=== PATIENT | female | born 1965 | race African-American/Black ===

== ENCOUNTER 2018-01-04 10:06 | Inpatient (IN) | payer OTHER ==
[2017-12-28 10:17] VITALS: BMI 34.4
[2018-01-04] MEDS ORDERED: TRANEXAMIC ACID 1000 MG/10 ML VIAL IVPUSH ONE (12:15)
[2018-01-04] MEDS ORDERED: CEFAZOLIN 2 GM/D5W 2 GM/50 ML ML IVPB ONE (12:15)
[2018-01-04] MEDS ORDERED: VANCOMYCIN 1 GRAM (PRE-DOCKED) 1,000 MG/250 ML BAG IVPB ONE (12:15)
--- NOTE | 2018-01-04 12:17 | HP ---
History & Physical Update - History History: No Change - Physical Physical: No Change - Assessment Assessment: No Change - Plan Plan: No Change (full h&P in chart from 12/06/2017 PMD)
[2018-01-04] MEDS ORDERED: BUPIVACAINE LIPOSOME/PF (EXPAREL) 266 MG/20 ML VIAL ONE (13:37)
[2018-01-04] MEDS ORDERED: MIDAZOLAM HCL 2 MG/2 ML SINGLE DOSE VIAL ONE ×4 (13:52→15:34)
[2018-01-04] MEDS ORDERED: SODIUM CHLORIDE 0.9% P/F 10 ML VIAL IJ ONE ×2 (13:55→14:01)
[2018-01-04] MEDS ORDERED: PROPOFOL 20 ML ONE ×9 (14:00→15:47)
[2018-01-04] MEDS ORDERED: LIDOCAINE HCL/PF 2% SDV 5ML VIAL ONE (14:00)
[2018-01-04] MEDS ORDERED: TRANEXAMIC ACID 1000 MG/10 ML VIAL ONE ×3 (14:01→16:46)
[2018-01-04] MEDS ORDERED: ONDANSETRON 4 MG/2 ML VIAL ONE ×2 (14:01→18:59)
[2018-01-04] MEDS ORDERED: DEXAMETHASONE SOD PHOSPHATE 4 MG/1 ML VIAL ONE (14:01)
[2018-01-04] MEDS ORDERED: VANCOMYCIN 1,000 MG VIAL (RESTRICTED TO ID ONLY) ONE (14:01)
[2018-01-04] MEDS ORDERED: ceFAZolin SODIUM 1 GM VIAL ONE ×2 (14:01→17:05)
[2018-01-04] MEDS ORDERED: oxyCODONE HCL 5 MG TABLET PO PRN (14:37)
[2018-01-04] MEDS ORDERED: ONDANSETRON 4 MG/2 ML VIAL IVPUSH PRN ×2 (14:37→17:18)
[2018-01-04] MEDS ORDERED: LACTATED RINGERS SOLUTION 1,000 ML IV SCH ×2 (14:45→17:30)
[2018-01-04] MEDS ORDERED: GLYCOPYRROLATE 0.2 MG/1 ML VIAL ONE (15:56)
[2018-01-04] MEDS ORDERED: BENZOIN/ALOE VERA/STORAX/TOLU 58 ML BOTTLE ONE (17:06)
--- NOTE | 2018-01-04 17:15 | PN ---
Progress Note (short form) - Note Progress Note: 52F s/p L TKA POD #0. -Pain control: per anaesthesia team. -DVT PPx: - Chemical: ASA 81mg PO BID x 6 weeks. - Mechanical: GENET's, SCD's. -Incentive spirometry. -PT/OT/Rehab, OOB. -WBAT LLE. -f/u post-op TOV. -f/u AM labs. -Discharge planning. -Care per medical hospitalist team. -Will follow. Galo Rodriguez MD (Orthopaedic Surgery).
[2018-01-04] MEDS ORDERED: MAGNESIUM HYDROX 2400MG/30ML ORAL SUSPENSION 30 ML CUP PO PRN (17:18)
[2018-01-04] MEDS ORDERED: MAG HYDROX/AL HYDROX/SIMETH 30 ML UNIT-DOSE CUP PO PRN (17:18)
--- NOTE | 2018-01-04 17:18 | OP ---
Operative Note - Note: Operative Date: 01/04/18 Pre-Operative Diagnosis: Left knee DJD Operation: Left total knee replacement Implants: [employer] Triathlon. Cemented. Femur - 4. Tibia - 5. Poly - 13mm, PS. Patella - 29mm, symmetric Surgeon: Galo Rodriguez Water Softener Service Supervisor: Mekhi Rodriguez Anesthesiologist/DRUM STRAIGHTENER: Jimmy Rodriguez Anesthesia: General, Spinal Specimens Removed: Bone, soft tissue Estimated Blood Loss (mls): 75 Operative Report Dictated: Yes
[2018-01-04] MEDS ORDERED: CELECOXIB 200 MG CAPSULE PO ONE (17:30)
--- NOTE | 2018-01-04 18:21 | OP ---
DATE OF OPERATION: 01/04/2018 SURGEON: Cam Rodriguez MD HEATING AND REFRIGERATION INSPECTOR: Mekhi Rodriguez MD PREOPERATIVE DIAGNOSIS: Tricompartment osteoarthritis fixed valgus knee deformity, left knee. POSTOPERATIVE DIAGNOSIS: Tricompartment osteoarthritis fixed valgus knee deformity, left knee. OPERATION PERFORMED: Left posterior stabilized cemented total knee arthroplasty ([employer] Triathlon). ANESTHESIA: Peripheral block with spinal anesthesia and conscious sedation. ANTIBIOTICS GIVEN: 2 g Kefzol, 1 g vancomycin. 1 g Kefzol given at the time of releasing the tourniquet. TOURNIQUET TIME: At the time of release, approximately 1 hour. OPERATION DETAILS: Patient correctly identified and brought to the operating room. Left lower extremity was prepped free, draped in the routine manner with betadine scrub, wiped off with alcohol, and DuraPrep applied. A timeout was called. Imaging was available for intraoperative evaluation. Midline incision was utilized from 2 inches above the superior pole of the patella to just below the tibial tubercle; longitudinal incision. The quadriceps tendon was split longitudinally. A curved parapatellar incision was made around patella to the tibial tubercle. The patella was capsulized laterally. The patella was cut first from the patella ligament to the quadriceps tendon in line with [place]. The jig for the preparation of the leg siddiqui was seated for a 29-mm polyethylene patellar button. The tibia was cut to neutral using extramedullary [employer] jig instrumentation and the femur was cut to 10 mm that is 2-mm proximal to the joint line, 3 degrees of external rotation, and 4 degrees of valgus. The jig cut enabled accurate cuttings. The trial components were inserted. The leg holes were drilled appropriately. Flexion and extension gaps were balanced at 13 mm. Once this had been performed, the wound was thoroughly lavaged and cementing was done in one stage to receive a size 4 femur, size 5 tibial tray, for a posterior stabilized articulation with 13-mm polyethylene liner inserted and a 29-mm patellar button inserted all in one seating of cement. All extraneous cement was removed. The wounds were thoroughly lavaged. Patella tracking was excellent. No complications. Closure: Quadriceps tendon with 1 Vicryl, subcuticular 1 and 2-0 Vicryl, skin 3-0 Monocryl with Steri-Strips. DRAINAGE: 1/8-inch Hemovac x1. No complications. The operation went well. MD SUNG [id number]
[2018-01-04] MEDS ORDERED: oxyCODONE HCL 5 MG TABLET ONE (18:59)
[2018-01-04] MEDS: oxyCODONE HCL 5 MG TABLET PO PRN (19:05)
[2018-01-04] MEDS: ACETAMINOPHEN 325 MG TABLET (FP) PO SCH ×2 (21:29→21:45)
[2018-01-04] MEDS: SENNOSIDES/DOCUSATE COMBO (SENNA PLUS) TABLET (UD) PO SCH (22:00)
[2018-01-04] MEDS: ASPIRIN COATED 81 MG TABLET.EC PO SCH (22:00)
[2018-01-04] MEDS: oxyCODONE HCL 10 MG SUSTAINED ACTING TABLET PO SCH (22:00)
[2018-01-04] MEDS: HYDROmorphone HCL CARPU-JECT 1 MG/1 ML DISP.SYRIN IVPB PRN (22:00)
[2018-01-05] MEDS: oxyCODONE HCL 5 MG TABLET PO PRN ×5 (00:11→20:21)
[2018-01-05] MEDS ORDERED: HYDROmorphone HCL CARPU-JECT 1 MG/1 ML DISP.SYRIN ONE (02:27)
[2018-01-05] MEDS: HYDROmorphone HCL CARPU-JECT 1 MG/1 ML DISP.SYRIN IVPB PRN (02:32)
[2018-01-05] MEDS: ACETAMINOPHEN 325 MG TABLET (FP) PO SCH ×6 (02:33→20:21)
[2018-01-05] MEDS: CEFAZOLIN 2 GM/D5W 2 GM/50 ML ML IVPB SCH ×2 (02:35)
[2018-01-05] MEDS ORDERED: VANCOMYCIN 1,000 MG in DEXTROSE 5%-WATER - 250 ML IVPB ONE (03:00)
[2018-01-05] MEDS ORDERED: HYDROmorphone HCL CARPU-JECT 2 MG/1 ML DISP.SYRIN IVPB PRN (08:09)
[2018-01-05] MEDS: IBUPROFEN 800 MG/8 ML IJ IVPB PRN (08:28)
[2018-01-05] MEDS: SENNOSIDES/DOCUSATE COMBO (SENNA PLUS) TABLET (UD) PO SCH ×2 (10:10→21:50)
[2018-01-05] MEDS: oxyCODONE HCL 10 MG SUSTAINED ACTING TABLET PO SCH ×2 (10:10→21:58)
[2018-01-05] MEDS: ASPIRIN COATED 81 MG TABLET.EC PO SCH ×2 (10:10→21:58)
[2018-01-05] MEDS: PANTOPRAZOLE 40 MG TABLET (FP) PO SCH (10:11)
--- NOTE | 2018-01-05 10:51 | PN ---
Progress Note (short form) - Note Progress Note: 52F POD1 s/p L TKR under spinal anesthetic with peripheral nerve blocks for post operative pain. Pain is moderately controlled, reports no anesthetic complications. AVSS. Motor and sensory function intact in bilateral lower extremities. Continue current regimen.
[2018-01-05 11:00] LABS: HEMATOCRIT 36.1 % (32.4-45.2); HEMOGLOBIN 12.4 GM/dl (10.7-15.3); MCH 29.9 pg (25.7-33.7); MCHC 34.3 g/dl (32.0-36.0); MEAN CELL VOLUME 87.1 fl (80-96); MEAN PLT VOLUME 8.4 fl (7.5-11.1); PLATELET COUNT 321 K/MM3 (134-434); RBC 4.14 M/mm3 (3.60-5.2); RDW 13.8 % (11.6-15.6); WHITE BLOOD COUNT 13.2 K/mm3 (4.0-10.8)
[2018-01-05 11:39] LABS: ANION GAP 5 (8-16); BLOOD UREA NITROGEN 13 mg/dl (7-18); CALCIUM 8.5 mg/dl (8.4-10.2); CHLORIDE 101 mmol/L (98-107); CO2 28 mmol/L (22-28); GLUCOSE,RANDOM 143 mg/dl (74-106); SODIUM 134 mmol/L (136-145)
--- NOTE | 2018-01-05 11:49 | CONSULT ---
Consultation: REQUESTING PROVIDER: Dr Rodriguez CONSULT REQUEST: We have been asked to medically evaluate this patient for medical management. HISTORY OF PRESENT ILLNESS: Patient is a 52 y/o female with a past medical history of asthma and osteoarthritis. Patient is s/p left total knee replacement , Dr Rodriguez, post op day 1. REVIEW OF SYSTEMS: CONSTITUTIONAL: Absent: fever, chills, diaphoresis, generalized weakness, malaise, loss of appetite, weight change HEENT: Absent: rhinorrhea, nasal congestion, throat pain, throat swelling, difficulty swallowing, mouth swelling, ear pain, eye pain, visual changes CARDIOVASCULAR: Absent: chest pain, syncope, palpitations, irregular heart rate, lightheadedness , peripheral edema RESPIRATORY: Absent: cough, shortness of breath, dyspnea with exertion, orthopnea, wheezing, stridor, hemoptysis GASTROINTESTINAL: Absent: abdominal pain, abdominal distension, nausea, vomiting, diarrhea, constipation, melena, hematochezia GENITOURINARY: Absent: dysuria, frequency, urgency, hesitancy, hematuria, flank pain, genital pain MUSCULOSKELETAL: Present: left knee pain Absent: myalgia, arthralgia, joint swelling, back pain, neck pain SKIN: Absent: rash, itching, pallor HEMATOLOGIC/IMMUNOLOGIC: Absent: easy bleeding, easy bruising, lymphadenopathy, frequent infections ENDOCRINE: Absent: unexplained weight gain, unexplained weight loss, heat intolerance, cold intolerance NEUROLOGIC: Absent: headache, focal weakness or paresthesias, dizziness, unsteady gait, seizure, mental status changes, bladder or bowel incontinence PSYCHIATRIC: Absent: anxiety, depression, suicidal or homicidal ideation, hallucinations. PHYSICAL EXAMINATION Vital Signs - 24 hr 01/04/18 01/04/18 01/04/18 18:10 18:15 18:20 Temperature 97.6 F 97.6 F 97.6 F Pulse Rate 89 83 85 Respiratory 13 20 17 Rate Blood Pressure 134/91 130/85 138/85 O2 Sat by Pulse 99 99 99 Oximetry (%) 01/04/18 01/04/18 01/04/18 18:25 18:40 18:55 Temperature 97.6 F 97.6 F 97.6 F Pulse Rate 84 83 90 Respiratory 17 16 21 Rate Blood Pressure 129/88 130/85 135/86 O2 Sat by Pulse 99 99 99 Oximetry (%) 01/04/18 01/04/18 01/04/18 19:10 19:25 19:30 Temperature 97.6 F 97.6 F 97.4 F L Pulse Rate 76 88 61 Respiratory 18 17 16 Rate Blood Pressure 147/99 149/94 143/76 O2 Sat by Pulse 99 99 99 Oximetry (%) 01/04/18 01/05/18 01/05/18 22:00 06:00 09:00 Temperature 97.8 F 99.1 F Pulse Rate 81 118 H Respiratory 16 19 19 Rate Blood Pressure 151/88 157/110 O2 Sat by Pulse 100 96 96 Oximetry (%) GENERAL: Awake, alert, and fully oriented, in no acute distress. HEAD: Normal with no signs of trauma. EYES: Pupils equal, round and reactive to light, extraocular movements intact, sclera anicteric, conjunctiva clear. No lid lag. EARS, NOSE, THROAT: Ears normal, nares patent, oropharynx clear without exudates. Moist mucous membranes. NECK: Normal range of motion, supple without lymphadenopathy, JVD, or masses. LUNGS: Breath sounds equal, clear to auscultation bilaterally. No wheezes, and no crackles. No accessory muscle use. HEART: Regular rate and rhythm, normal S1 and S2 without murmur, rub or gallop. ABDOMEN: Soft, nontender, not distended, normoactive bowel sounds, no guarding, no rebound, no masses. No hepatomegaly or splenomegaly. MUSCULOSKELETAL: Normal range of motion at all joints. No bony deformities or tenderness. No CVA tenderness. UPPER EXTREMITIES: 2+ pulses, warm, well-perfused. No cyanosis. No clubbing. Cap refill <2 seconds. No peripheral edema. LOWER EXTREMITIES: 2+ pulses, warm, well-perfused. No calf tenderness. No peripheral edema. LEFT LOWER EXTREMITY: dressing cdi less than 3 second capillary refill, +3 pedal pulse scd/shyla, hemovac scant dressing noted. NEUROLOGICAL: Cranial nerves II-XII intact. Normal speech. Normal gait. PSYCHIATRIC: Cooperative. Good eye contact. Appropriate mood and affect. SKIN: Warm, dry, normal turgor, no rashes or lesions noted. Laboratory Results - last 24 hr 01/04/18 01/05/18 01/05/18 11:25 09:22 09:22 WBC 13.2 H RBC 4.14 Hgb 12.4 Hct 36.1 MCV 87.1 MCH 29.9 MCHC 34.3 RDW 13.8 Plt Count 321 MPV 8.4 Sodium 134 L Potassium 4.0 Chloride 101 Carbon Dioxide 28 Anion Gap 5 L BUN 13 Creatinine 1.0 Random Glucose 143 H Calcium 8.5 Urine HCG, Qual Negative Active Medications Generic Name Dose Route Start Last Admin Trade Name Freq PRN Reason Stop Dose Admin Acetaminophen 650 mg 01/04/18 14:45 01/05/18 08:45 Tylenol - PO 01/07/18 14:44 650 mg Q6H EVENS Administration Al Hydroxide/Mg Hydroxide 30 ml 01/04/18 17:18 Mylanta Oral Suspension - PO Q4H PRN DYSPEPSIA Aspirin 81 mg 01/04/18 22:00 01/05/18 10:10 Ecotrin - PO 81 mg BID EVENS Administration Hydromorphone HCl 1 mg 01/05/18 08:09 Dilaudid Injection - IVPB Q4H PRN PAIN LEVEL 6-10 Ibuprofen 600 mg 01/04/18 21:43 01/05/18 08:28 Caldolor Injection - IVPB 600 mg Q8H PRN Administration FEVER Magnesium Hydroxide 30 ml 01/04/18 17:18 Milk Of Magnesia - PO PRN PRN CONSTIPATION Ondansetron HCl 4 mg 01/04/18 17:18 Zofran Injection IVPUSH Q6H PRN NAUSEA Oxycodone HCl 5 mg 01/04/18 14:37 Roxicodone - PO Q3H PRN PAIN LEVEL 1-5 Oxycodone HCl 10 mg 01/04/18 14:37 01/05/18 08:28 Roxicodone - PO 10 mg Q3H PRN Administration PAIN LEVEL 6-10 Oxycodone HCl 10 mg 01/04/18 22:00 01/05/18 10:10 Oxycontin - PO 01/07/18 14:38 10 mg BID EVENS Administration Pantoprazole Sodium 40 mg 01/05/18 10:00 01/05/18 10:11 Protonix - PO 40 mg DAILY EVENS Administration Senna/Docusate Sodium 2 tablet 01/04/18 22:00 01/05/18 10:10 Pericolace - PO 2 tablet BID EVENS Administration ASSESSMENT/PLAN: 1) MS left total knee replacement, POD #1 - prn pain medication - incentive spirometer - hgb 12.4 stable - physical therapy as per orthopedist f/e/n - low sodium diet ppx - asa as per orthopedist - scd/shyla - physical therapy Dispo: We will continue to follow the patient. Thank you for this consultative opportunity. Visit type - Emergency Visit Emergency Visit: No - New Patient This patient is new to me today: Yes Date on this admission: 01/05/18 - Critical Care Critical Care patient: No
[2018-01-05] MEDS ORDERED: ALBUTEROL SO4 0.083% IH SOL 2.5 MG/3 ML VIAL.NEB. NEB PRN (11:58)
[2018-01-05 12:12] LABS: PLATELET ESTIMATE ADEQUATE
[2018-01-06] MEDS: oxyCODONE HCL 5 MG TABLET PO PRN ×4 (03:35→12:02)
[2018-01-06] MEDS: ACETAMINOPHEN 325 MG TABLET (FP) PO SCH ×4 (04:08→21:34)
[2018-01-06 08:35] LABS: HEMATOCRIT 30.8 % (32.4-45.2); HEMOGLOBIN 10.7 GM/dl (10.7-15.3); MCH 30.1 pg (25.7-33.7); MCHC 34.8 g/dl (32.0-36.0); MEAN CELL VOLUME 86.5 fl (80-96); MEAN PLT VOLUME 8.1 fl (7.5-11.1); PLATELET COUNT 268 K/MM3 (134-434); RBC 3.56 M/mm3 (3.60-5.2); RDW 13.9 % (11.6-15.6); WHITE BLOOD COUNT 9.9 K/mm3 (4.0-10.8)
[2018-01-06] MEDS: ASPIRIN COATED 81 MG TABLET.EC PO SCH ×2 (09:47→21:35)
[2018-01-06] MEDS: PANTOPRAZOLE 40 MG TABLET (FP) PO SCH (09:48)
[2018-01-06] MEDS: oxyCODONE HCL 10 MG SUSTAINED ACTING TABLET PO SCH ×2 (09:48→21:35)
[2018-01-06] MEDS: SENNOSIDES/DOCUSATE COMBO (SENNA PLUS) TABLET (UD) PO SCH ×2 (09:48→21:35)
--- NOTE | 2018-01-06 14:46 | DS ---
Physical Exam: SUBJECTIVE: Patient seen and examined, reports feeling well, denies any paresthesia to the left lower extremity. OBJECTIVE:Patient is a 52 y/o female with a past medical history of asthma and osteoarthritis. Patient is s/p left total knee replacement, Dr Rodriguez, post op day 2. Vital Signs Period Temp Pulse Resp BP Sys/Bailey Pulse Ox Last 24 Hr 98.3 F-99.0 F 80-108 19-20 112-138/63-79 93-98 PHYSICAL EXAM GENERAL: The patient is awake, alert, and fully oriented, in no acute distress. HEAD: Normal with no signs of trauma. EYES: PERRL, extraocular movements intact, sclera anicteric, conjunctiva clear. ENT: Ears normal, nares patent, oropharynx clear without exudates, moist mucous membranes. NECK: Trachea midline, full range of motion, supple. LUNGS: Breath sounds equal, clear to auscultation bilaterally, no wheezes, no crackles, no accessory muscle use. HEART: Regular rate and rhythm, S1, S2 without murmur, rub or gallop. ABDOMEN: Soft, nontender, nondistended, normoactive bowel sounds, no guarding, no rebound, no hepatosplenomegaly, no masses. EXTREMITIES: 2+ pulses, warm, well-perfused, no edema. LEFT LOWER EXTREMITY: aquacel dressing, cdi, less than 3 second capillary refill , +3 pedal pulse, hemovac drain removed scant sang drainage noted. NEUROLOGICAL: Cranial nerves II through XII grossly intact. Normal speech, gait not observed. PSYCH: Normal mood, normal affect. SKIN: Warm, dry, normal turgor, no rashes or lesions noted. LABS Laboratory Results - last 24 hr 01/06/18 08:01 WBC 9.9 RBC 3.56 L Hgb 10.7 D Hct 30.8 L MCV 86.5 MCH 30.1 MCHC 34.8 RDW 13.9 Plt Count 268 MPV 8.1 HOSPITAL COURSE: The patient was admitted to the Med-Surg Unit after an elective left total knee replacement, Dr Rodriguez. On post op day 1, patient ambulated the hallways with assistance. Narcotic and non-narcotic pain management control was achieved with an oral and IV approach. POD #2, the surgical drain was removed fully intact and without incident. Yolanda-operative IV ABX were administered. DVT prophylaxis was achieved with SCDs and early ambulation. The patient ambulated with Physical Therapy and patient is requesting discharge to SNF for rehab. The discharge instructions and an oral pain management plan were reviewed with the patient. All questions answered. Above plan discussed with Dr. Rodriguez and agreed. Date of Admission:01/04/18 Date of Discharge: 01/06/18 Minutes to complete discharge: 45 Discharge Summary Reason For Visit: LEFT KNEE SURGERY Condition: Improved - Instructions Diet, Activity, Other Instructions: Post-op Instructions- Call the office for a follow-up appointment in 1 week Aspirin 81mg bid for 6 weeks. Apply Graduated Compression Stockings (TEDs) to both lower extremities- remove daily for hygiene ONLY Apply cold packs to affected area for 15 minutes every 2 hours. Patient may ambulate as tolerated-encourage self care (at least every 2-3 hours while awake) with walker or cane Maintain (waterproof) dressing to operative wound (will be removed by surgeon at first office visit) Shower with dressing in place-if dressing integrity compromised, remove and apply dry sterile dressing and notify Orthopedist. DO NOT SHOWER unless Orthopedists approves without dressing CONTACT THE OFFICE FOR ANY CHANGE IN YOUR CONDITION (for example-fever greater than 102 degrees,excessive bleeding from operative site, purulent drainage, severe swelling or pain) GO TO THE EMERGENCY ROOM IF THERE IS A MEDICAL EMERGENCY * If you have any questions, please do not hesitate to call the office Referrals: Mekhi Rodriguez MD [Staff Physician] - 01/12/18 - Home Medications Comprehensive Discharge Medication List: Ambulatory Orders Ibuprofen [Motrin -] 800 mg PO ASDIR PRN 12/28/17 Acetaminophen [Tylenol .Regular Strength -] 650 mg PO Q6H tablet 01/06/18 Albuterol 0.083% Nebulizer Erica [Ventolin 0.083% Nebulizer Soln -] 1 amp NEB Q4H PRN amp 01/06/18 Aspirin Coated [Ecotrin -] 81 mg PO BID #60 tablet.ec 01/06/18 Magnesium Hydrox 2400MG/30Ml [Milk of Magnesia -] 30 ml PO PRN PRN cup Pantoprazole Sodium [Protonix -] 40 mg PO DAILY tablet.ec 01/06/18 Sennosides/Docusate Sodium [Pericolace -] 2 tablet PO BID tablet 01/06/18 oxyCODONE HCL [Roxicodone -] 10 mg PO Q6H PRN #20 tablet MDD 4 01/06/18 This patient is new to me today: No Emergency Visit: No Critical Care patient: No - Discharge Referral Referred to [facility] Med P.C.: No
[2018-01-07] MEDS: oxyCODONE HCL 5 MG TABLET PO PRN ×2 (00:18→09:56)
[2018-01-07] MEDS: ACETAMINOPHEN 325 MG TABLET (FP) PO SCH ×2 (03:00→09:00)
[2018-01-07] MEDS: PANTOPRAZOLE 40 MG TABLET (FP) PO SCH (09:56)
[2018-01-07] MEDS: SENNOSIDES/DOCUSATE COMBO (SENNA PLUS) TABLET (UD) PO SCH ×2 (09:56→21:43)
[2018-01-07] MEDS: ASPIRIN COATED 81 MG TABLET.EC PO SCH ×2 (09:56→21:43)
[2018-01-07] MEDS: oxyCODONE HCL 10 MG SUSTAINED ACTING TABLET PO SCH (09:57)
[2018-01-07] MEDS: IBUPROFEN 800 MG/8 ML IJ IVPB PRN (12:52)
--- NOTE | 2018-01-07 12:55 | PN ---
Physical Exam: SUBJECTIVE: Patient seen and examined oob to chair. Walked with PT earlier today. OBJECTIVE: Vital Signs Period Temp Pulse Resp BP Sys/Bailey Pulse Ox Last 24 Hr 98.7 F-99.1 F 80-108 19-20 128-138/63-86 94-95 GENERAL: The patient is awake, alert, and fully oriented, in no acute distress. LUNGS: Breath sounds equal, clear to auscultation bilaterally, no wheezes, no crackles, no accessory muscle use. HEART: Regular rate and rhythm, S1, S2 LLE: left knee surgical dressing c/d/i, no surrounding erythema, edema, or warmth; TEDs & SCDs NEUROLOGICAL: Cranial nerves II through XII grossly intact. Normal speech, gait not observed. PSYCH: Normal mood, normal affect. SKIN: Warm, dry, normal turgor Active Medications Generic Name Dose Route Start Last Admin Trade Name Freq PRN Reason Stop Dose Admin Acetaminophen 650 mg 01/04/18 14:45 01/07/18 09:00 Tylenol - PO 01/07/18 14:44 Not Given Q6H EVENS Al Hydroxide/Mg Hydroxide 30 ml 01/04/18 17:18 Mylanta Oral Suspension - PO Q4H PRN DYSPEPSIA Albuterol Sulfate 1 amp 01/05/18 11:58 Ventolin 0.083% Nebulizer Soln - NEB Q4H PRN SHORT OF BREATH/WHEEZING Aspirin 81 mg 01/04/18 22:00 01/07/18 09:56 Ecotrin - PO 81 mg BID EVENS Administration Hydromorphone HCl 1 mg 01/05/18 08:09 Dilaudid Injection - IVPB Q4H PRN PAIN LEVEL 6-10 Ibuprofen 600 mg 01/04/18 21:43 01/07/18 12:52 Caldolor Injection - IVPB 600 mg Q8H PRN Administration FEVER Magnesium Hydroxide 30 ml 01/04/18 17:18 Milk Of Magnesia - PO PRN PRN CONSTIPATION Ondansetron HCl 4 mg 01/04/18 17:18 Zofran Injection IVPUSH Q6H PRN NAUSEA Oxycodone HCl 5 mg 01/04/18 14:37 Roxicodone - PO Q3H PRN PAIN LEVEL 1-5 Oxycodone HCl 10 mg 01/04/18 14:37 01/07/18 09:56 Roxicodone - PO 10 mg Q3H PRN Administration PAIN LEVEL 6-10 Oxycodone HCl 10 mg 01/04/18 22:00 01/07/18 09:57 Oxycontin - PO 01/07/18 14:38 10 mg BID EVENS Administration Pantoprazole Sodium 40 mg 01/05/18 10:00 01/07/18 09:56 Protonix - PO 40 mg DAILY EVENS Administration Senna/Docusate Sodium 2 tablet 01/04/18 22:00 01/07/18 09:56 Pericolace - PO 2 tablet BID EVENS Administration ASSESSMENT/PLAN: The patient was admitted to the Med-Surg Unit after an elective left total knee replacement, Dr Rodriguez. On post op day 1, patient ambulated the hallways with assistance. Narcotic and non-narcotic pain management control was achieved with an oral and IV approach. POD #2, the surgical drain was removed fully intact and without incident. Yolanda-operative IV ABX were administered. DVT prophylaxis was achieved with SCDs and early ambulation. The patient ambulated with Physical Therapy and patient is requesting discharge to SNF for rehab. The discharge instructions and an oral pain management plan were reviewed with the patient. All questions answered. Above plan discussed with Dr. Rodriguez and agreed. Patient seen and examined today. Continue plan. Awaiting approval for SNF placement. Visit type - Emergency Visit Emergency Visit: No - New Patient This patient is new to me today: Yes Date on this admission: 01/07/18 - Critical Care Critical Care patient: No
[2018-01-08] MEDS ORDERED: oxyCODONE HCL 5 MG TABLET PO PRN (00:50)
[2018-01-08] MEDS: oxyCODONE HCL 5 MG TABLET PO PRN ×3 (01:10→21:39)
[2018-01-08] MEDS: PANTOPRAZOLE 40 MG TABLET (FP) PO SCH (09:53)
[2018-01-08] MEDS: ASPIRIN COATED 81 MG TABLET.EC PO SCH ×2 (09:54→21:39)
[2018-01-08] MEDS: SENNOSIDES/DOCUSATE COMBO (SENNA PLUS) TABLET (UD) PO SCH ×2 (09:54→21:38)
--- NOTE | 2018-01-08 10:10 | PN ---
Physical Exam: SUBJECTIVE: Patient seen and examined Pt c/o neck pain,denies stiff neck, dizziness/ BROOKS or visual changes,cp, sob or palpitations, reports Lt knee pain controlled with pain meds. OBJECTIVE: Vital Signs Period Temp Pulse Resp BP Sys/Bailey Pulse Ox Last 24 Hr 98.0 F-98.9 F 103-111 19-20 103-134/65-80 94-95 GENERAL: The patient is awake, alert, and fully oriented, in no acute distress. HEAD: Normal with no signs of trauma. EYES: PERRL, extraocular movements intact, sclera anicteric, conjunctiva clear. No ptosis. ENT: Ears normal, nares patent, oropharynx clear without exudates, moist mucous membranes. NECK: Trachea midline, full range of motion, supple. LUNGS: Breath sounds equal, clear to auscultation bilaterally, no wheezes, no crackles, no accessory muscle use. HEART: Regular rate and rhythm, S1, S2 without murmur, rub or gallop. ABDOMEN: Soft, nontender, nondistended, normoactive bowel sounds, no guarding, no rebound, no hepatosplenomegaly, no masses. EXTREMITIES: 2+ pulses, warm, well-perfused, no edema., left knee dsg intact NEUROLOGICAL: Cranial nerves II through XII grossly intact. Normal speech, gait not observed. PSYCH: Normal mood, normal affect. SKIN: Warm, dry, normal turgor, no rashes or lesions noted Active Medications Generic Name Dose Route Start Last Admin Trade Name Freq PRN Reason Stop Dose Admin Al Hydroxide/Mg Hydroxide 30 ml 01/04/18 17:18 Mylanta Oral Suspension - PO Q4H PRN DYSPEPSIA Albuterol Sulfate 1 amp 01/05/18 11:58 Ventolin 0.083% Nebulizer Soln - NEB Q4H PRN SHORT OF BREATH/WHEEZING Aspirin 81 mg 01/04/18 22:00 01/08/18 09:54 Ecotrin - PO 81 mg BID EVENS Administration Ibuprofen 600 mg 01/04/18 21:43 01/07/18 12:52 Caldolor Injection - IVPB 600 mg Q8H PRN Administration FEVER Magnesium Hydroxide 30 ml 01/04/18 17:18 01/08/18 00:29 Milk Of Magnesia - PO 30 ml PRN PRN Administration CONSTIPATION Ondansetron HCl 4 mg 01/04/18 17:18 Zofran Injection IVPUSH Q6H PRN NAUSEA Oxycodone HCl 5 mg 01/08/18 00:50 Roxicodone - PO Q3H PRN PAIN LEVEL 1-5 Oxycodone HCl 10 mg 01/08/18 00:55 01/08/18 01:10 Roxicodone - PO 10 mg Q3H PRN Administration PAIN LEVEL 6-10 Pantoprazole Sodium 40 mg 01/05/18 10:00 01/08/18 09:53 Protonix - PO 40 mg DAILY EVENS Administration Senna/Docusate Sodium 2 tablet 01/04/18 22:00 01/08/18 09:54 Pericolace - PO Not Given BID EVENS ASSESSMENT/PLAN: Patient is a 52 y/o female with a past medical history of asthma and osteoarthritis,s/p left total knee replacement, Dr Rodriguez. 1) MS s/p left total knee replacement, POD #4 - prn pain medication - incentive spirometer - hgb stable - physical therapy as per orthopedist 2)cardiovascular ST HR in 100-110's, asymptomatic - will get VQ scan and US lower exts f/e/n - low sodium diet ppx - asa as per orthopedist - scd/shyla - physical therapy Dispo: We will continue to follow the patient. Thank you for this consultative opportunity. Visit type - Emergency Visit Emergency Visit: Yes ED Registration Date: 01/04/18 Care time: The patient presented to the Emergency Department on the above date and was hospitalized for further evaluation of their emergent condition. - New Patient This patient is new to me today: Yes Date on this admission: 01/08/18 - Critical Care Critical Care patient: No
[2018-01-08] MEDS: IBUPROFEN 400 MG TABLET (FP) PO PRN (10:54)
[2018-01-09] MEDS: PANTOPRAZOLE 40 MG TABLET (FP) PO SCH (10:00)
[2018-01-09] MEDS: SENNOSIDES/DOCUSATE COMBO (SENNA PLUS) TABLET (UD) PO SCH ×2 (10:00→21:19)
[2018-01-09] MEDS: ASPIRIN COATED 81 MG TABLET.EC PO SCH ×2 (10:00→21:19)
--- NOTE | 2018-01-09 11:36 | PATH ---
Surgical Pathology Report Patient Name: OLVIN GALVAN Med. Rec. #: [id number] /Age/Gender: 1965 (Age: 52) / F Account: [id number] Location: [facility] MED-SURG Taken: 01/04/2018 Received: 01/04/2018 Reported: 01/09/2018 Physicians: Galo Rodriguez M.D. Specimen(s) Received LEFT KNEE BONE AND SOFT TISSUE Clinical History Left knee osteoarthritis Final Diagnosis BONE AND SOFT TISSUE, LEFT KNEE, REPLACEMENT: DEGENERATIVE JOINT DISEASE. Electronically Signed Damien Pineda M.D. Gross Description Received in formalin labeled "left knee bone and soft tissue," is a 12.0 x 10.0 x 2.0 cm aggregate of multiple portions of bone and soft tissue. The tibial plateau measures 8.0 x 5.0 x 1.8 cm. There is a 1.3 cm in greatest dimension area of eburnation present. The remaining articular surfaces are pearl-yellow and focally granular. The underlying trabecular bone is yellow and hard. Financial Aid Advisor sections are submitted in one cassette, following decalcification. 01/05/201801/05/2018
--- NOTE | 2018-01-09 15:00 | HOSP ---
Subjective - Review of Symptoms Subjective: patient is ambulatory throughout nursing station with walker denies any chest pain or shortness of breath. Musculoskeletal: Yes: No Symptoms Physical Examination Vital Signs: Vital Signs Temperature 98.1 F 01/09/18 14:38 Pulse Rate 94 H 01/09/18 14:38 Respiratory Rate 18 01/09/18 14:38 Blood Pressure 130/66 01/09/18 14:38 O2 Sat by Pulse Oximetry (%) 97 01/09/18 14:38 Constitutional: Yes: Well Nourished, No Distress, Calm Eyes: Yes: WNL, Conjunctiva Clear, EOM Intact HENT: Yes: WNL, Atraumatic, Normocephalic Neck: Yes: WNL, Supple, Trachea Midline Cardiovascular: Yes: WNL, Regular Rate and Rhythm, S1, S2 Respiratory: Yes: WNL, Regular, CTA Bilaterally Gastrointestinal: Yes: WNL, Normal Bowel Sounds, Soft Musculoskeletal: Yes: Other Extremities: Yes: Other (left lower extremity- dressing cdi, less than 3 second capillary refill, + 3 pedal pulse,able to move the digits of the foot w/o any difficulty) Edema: No Peripheral Pulses WNL: Yes Peripheral Pulses: Left Radial: 4+, Right Radial: 4+, Left Doralis Pedis: 3+, Right Dorsalis Pedis: 3+, Left Femoral: 3+, Right Femoral: 3+ Wound/Incision: Yes: Dressing Dry and Intact Neurological: Yes: WNL, Alert, Oriented ...Motor Strength: WNL Psychiatric: Yes: WNL, Alert, Oriented Labs: CBC, BMP 01/06/18 08:01 01/05/18 09:22 Hospitalist Encounter Assessment: patient is requesting comfortably in bedside chair , reports anterior neck pain that is resolved with prn ibuprofen. Recommendations/Interventions: discussed with Dr Rodriguez in regards to discharge, patient is cleared for discharge by orthopedist. patient is requesting discharge to SNF for short term rehab, awaiting insurance approval.
[2018-01-09] MEDS: oxyCODONE HCL 5 MG TABLET PO PRN ×2 (18:17→21:22)
[2018-01-09] MEDS: IBUPROFEN 400 MG TABLET (FP) PO PRN (18:18)
[2018-01-10] MEDS: oxyCODONE HCL 5 MG TABLET PO PRN ×3 (01:46→10:14)
[2018-01-10 06:35] VITALS: BP 130/72; PULSE 86; TEMP 98
[2018-01-10] MEDS: IBUPROFEN 400 MG TABLET (FP) PO PRN (08:09)
[2018-01-10] MEDS: ASPIRIN COATED 81 MG TABLET.EC PO SCH (10:15)
[2018-01-10] MEDS: SENNOSIDES/DOCUSATE COMBO (SENNA PLUS) TABLET (UD) PO SCH (10:15)
[2018-01-10] MEDS: PANTOPRAZOLE 40 MG TABLET (FP) PO SCH (10:15)
--- NOTE | 2018-01-10 11:24 | PN ---
Physical Exam: SUBJECTIVE: Patient seen and examined, awaiting insurance authorization for rehab placement OBJECTIVE: Vital Signs Period Temp Pulse Resp BP Sys/Bailey Pulse Ox Last 24 Hr 98.0 F-98.3 F 86-94 17-19 122-130/59-72 96-97 GENERAL: The patient is awake, alert, and fully oriented, in no acute distress. HEAD: Normal with no signs of trauma. EYES: PERRL, extraocular movements intact, sclera anicteric, conjunctiva clear. No ptosis. ENT: Ears normal, nares patent, oropharynx clear without exudates, moist mucous membranes. NECK: Trachea midline, full range of motion, supple. LUNGS: Breath sounds equal, clear to auscultation bilaterally, no wheezes, no crackles, no accessory muscle use. HEART: Regular rate and rhythm, S1, S2 without murmur, rub or gallop. ABDOMEN: Soft, nontender, nondistended, normoactive bowel sounds, no guarding, no rebound, no hepatosplenomegaly, no masses. EXTREMITIES: 2+ pulses, warm, well-perfused, no edema., left knee dsg intact NEUROLOGICAL: Cranial nerves II through XII grossly intact. Normal speech, gait not observed. PSYCH: Normal mood, normal affect. SKIN: Warm, dry, normal turgor, no rashes or lesions noted Active Medications Generic Name Dose Route Start Last Admin Trade Name Freq PRN Reason Stop Dose Admin Al Hydroxide/Mg Hydroxide 30 ml 01/04/18 17:18 Mylanta Oral Suspension - PO Q4H PRN DYSPEPSIA Albuterol Sulfate 1 amp 01/05/18 11:58 Ventolin 0.083% Nebulizer Soln - NEB Q4H PRN SHORT OF BREATH/WHEEZING Aspirin 81 mg 01/04/18 22:00 01/10/18 10:15 Ecotrin - PO 81 mg BID EVENS Administration Ibuprofen 800 mg 01/08/18 10:21 01/10/18 08:09 Motrin - PO 800 mg Q8H PRN Administration FEVER Magnesium Hydroxide 30 ml 01/04/18 17:18 01/08/18 00:29 Milk Of Magnesia - PO 30 ml PRN PRN Administration CONSTIPATION Ondansetron HCl 4 mg 01/04/18 17:18 Zofran Injection IVPUSH Q6H PRN NAUSEA Oxycodone HCl 5 mg 01/08/18 00:50 Roxicodone - PO Q3H PRN PAIN LEVEL 1-5 Oxycodone HCl 10 mg 01/08/18 00:55 01/10/18 10:14 Roxicodone - PO 10 mg Q3H PRN Administration PAIN LEVEL 6-10 Pantoprazole Sodium 40 mg 01/05/18 10:00 01/10/18 10:15 Protonix - PO 40 mg DAILY EVENS Administration Senna/Docusate Sodium 2 tablet 01/04/18 22:00 01/10/18 10:15 Pericolace - PO 2 tablet BID EVENS Administration ASSESSMENT/PLAN: 1) MS s/p left total knee replacement, POD #6 - prn pain medication - incentive spirometer - hgb stable - physical therapy as per orthopedist 2)pulmonary asthma - prn albuterol patient is medically stable will sign off, thank you for consultative opportunity Visit type - Emergency Visit Emergency Visit: No - New Patient This patient is new to me today: No - Critical Care Critical Care patient: No - Discharge Referral Referred to [facility] No
== END 2018-01-10 13:40 | disposition home or self-care (01) | DRG 302 ==
LOC: FM/S 10:06 → UNDODISIN 01-09 13:30
PROVIDERS: ADMIT Orthopaedic Surgery Orthopaedic Surgery of the Spine; ATTEND Orthopaedic Surgery Orthopaedic Surgery of the Spine
PROC: 0SRD0J9 Replacement of Left Knee Joint with Synthetic Substitute, Cemented, Open Approach (ICD-10-PCS; principal; 2018-01-04 16:13)
DX: M17.12 Unilateral primary osteoarthritis, left knee (principal); M21.062 Valgus deformity, not elsewhere classified, left knee; J45.909 Unspecified asthma, uncomplicated
CPT/HCPCS: 36415; 71046-TC-FY; 73560-TC-LT-FY; 80048; 84703; 85027; 88304-TC; 88311-TC; 93970-TC; 94760; 97116-GP; 97162-GP